=== PATIENT | male | born 1995 | race Caucasian/White ===

== ENCOUNTER 2017-10-21 11:10 | Emergency (ER) | payer OTHER ==
[2017-10-21 11:17] VITALS: BP 131/88
--- NOTE | 2017-10-21 12:04 | EDPHY ---
H & P Time Seen by Provider: 10/21/17 11:36 HPI/ROS: CHIEF COMPLAINT: Left ankle injury HISTORY OF PRESENT ILLNESS: 22-year-old male presents to the emergency department with injury to his left ankle. The patient was running this morning and somehow stepped and twisted his left ankle. The incident happened just prior to arrival. He is having trouble bearing weight. Denies hitting his head or losing consciousness. Denies any other injuries. He has had previous ankle sprains in the past. ROS: Denies numbness or tingling in his toes, pain in his left calf or knee. Past Medical/Surgical History: Asthma, tonsillectomy Social History: [employer] student Smoking Status: Never smoked Physical Exam: On examination the patient has swelling to the lateral aspect of the left ankle overlying lateral malleolus. Tenderness with palpation over the distal fibula and lateral malleolus. Limited dorsiflexion secondary to pain. Full plantar flexion. No obvious ligament instability. Nontender to palpate the medial aspect of his left ankle. Achilles tendon is intact. Calf is nontender. Normal sensation to light touch with normal 2 point discrimination. Strong dorsalis pedis pulse on the dorsal aspect of the left foot. His gait is not tested due to pain. Constitutional: Initial Vital Signs Temperature (C) 36.7 C 10/21/17 11:16 Heart Rate 64 10/21/17 11:16 Respiratory Rate 16 10/21/17 11:16 Blood Pressure 131/88 H 10/21/17 11:16 O2 Sat (%) 95 10/21/17 11:16 O2 Delivery Mode Room Air Allergies/Adverse Reactions: No Known Allergies Allergy (Unverified 10/21/17 11:16) Home Medications: Medication Instructions Recorded NK [No Known Home Meds] 10/21/17 MDM/Departure - MDM Imaging Results: Imaging Impressions Ankle X-Ray 10/21/17 11:18 Impression: 1. No acute osseous abnormality seen left ankle. 2. U-shaped metallic wire-type foreign body projected along the anterolateral aspect of the distal talus near the talonavicular joint. The etiology is indeterminate. Imaging: I viewed and interpreted images myself Procedures: The patient was placed in a Grady boot and examined post application in good placement with normal [employer]. ED Course/Re-evaluation: 22-year-old male presents to the emergency department with left ankle injury. X -rays reveal no fractures. He was placed in a Grady boot and given orthopedic referral. - Depart Disposition: Home, Routine, Self-Care Clinical Impression: Left ankle sprain Qualifiers: Encounter type: initial encounter Involved ligament of ankle: unspecified ligament Qualified Code(s): S93.402A - Sprain of unspecified ligament of left ankle, initial encounter Condition: Good Instructions: Ankle Sprain (ED) Additional Instructions: Grady boot for comfort and support. Weightbear as tolerated. Ibuprofen 600 mg every 8 hr as needed for pain. Ice and elevate to help relieve swelling. Return to the emergency department if you develop increasing pain, numbness or tingling in her toes, or if you feel worse in any way. Referrals: Yoandy Almaraz MD [Medical Doctor] - 5-7 days, call for appt. (Orthopedic surgeon on-call)
== END 2017-10-21 12:22 | disposition home or self-care (01) ==
DX: S93.402A Sprain of unspecified ligament of left ankle, initial encounter (principal); J45.909 Unspecified asthma, uncomplicated; X50.9XXA Other and unspecified overexertion or strenuous movements or postures, initial encounter; Y99.8 Other external cause status; Y93.02 Activity, running

== ENCOUNTER 2017-12-31 17:55 | Emergency (ER) | payer SELFPAY ==
--- NOTE | 2017-12-31 18:41 | EDPHY ---
H & P Time Seen by Provider: 12/31/17 18:13 HPI/ROS: CHIEF COMPLAINT: "I think I have a sinus infection" HISTORY OF PRESENT ILLNESS: 22-year-old immunocompetent male complaining of 7 days of sinus pressure without improvement. He notes that when he bends over he has the increased maxillary sinus pressure. Been experiencing sore throat, rhinorrhea. Denies: Cough, nausea, vomiting, nuchal rigidity, rash, fever, chills. PRIMARY CARE PROVIDER: REVIEW OF SYSTEMS: 10 systems reviewed and negative with the exception of the elements mentioned in the history of present illness PAST MEDICAL & SURGICAL HISTORY: No pertinent medical or surgical history SOCIAL HISTORY: Nonsmoker PHYSICAL EXAM (Prior to examination, patient consented to physical exam, hands were washed and my usual and customary physical exam procedures followed) 1) GENERAL: Well-developed, well-nourished, alert and oriented. Appears to be in no acute distress. 2) HEAD: Normocephalic, atraumatic 3) HEENT: Pupils equal, round, reactive to light bilaterally. Sclera anicteric. Nasopharynx, oropharynx, clear, no lesions. Moist Mucous membranes. Ears bilaterally with normal tympanic membranes. No evidence of otitis media or otitis externa. Tender to percussion maxillary sinuses. 4) NECK: Full range of motion, no meningeal signs. 5) LUNGS: Clear auscultation bilaterally, no wheezes, no rhonchi, no retractions. 6) HEART: Regular rate and rhythm, no murmur, no heave, no gallop. 7) ABDOMEN: No guarding, no rebound, no focal tenderness, negative McBurney's, negative Dalton's, negative Rovsing's, negative peritoneal sign, 8) MUSCULOSKELETAL: Moving all extremities, no focal areas of tenderness, no obvious trauma. No peripheral edema or discoloration. 9) BACK: No CVA tenderness, no midline vertebral tenderness, no fluctuance, no step-off, no obvious trauma, no visual or palpable abnormality. 10) SKIN: No rash, no petechiae. 11) Psychiatric: Patient is oriented X 3, there is no agitation. DIFFERENTIAL DIAGNOSIS: In no particular include but limited to bacterial sinusitis, viral syndrome, so pharyngitis Smoking Status: Never smoked Constitutional: Initial Vital Signs Temperature (C) 37.1 C 12/31/17 18:12 Heart Rate 62 12/31/17 18:12 Respiratory Rate 18 12/31/17 18:12 Blood Pressure 136/84 H 12/31/17 18:12 O2 Sat (%) 97 12/31/17 18:12 O2 Delivery Mode Room Air Allergies/Adverse Reactions: No Known Allergies Allergy (Unverified 12/31/17 18:11) Home Medications: Medication Instructions Recorded Azithromycin [Zithromax] 500 mg PO DAILY #1 tablet 12/31/17 MDM/Departure - [facility] ED Course/Re-evaluation: Given the longevity of the patient's symptoms I think a course of antibiotics is appropriate. We discussed possible bacterial super infection. I do not think that imaging studies indicated at this time. Will prescribe him azithromycin. My usual and customary discharge precautions instructions provided. I saw this patient independently based on established practice protocols. Care of patient under supervision of secondary supervising physician Dr Church with whom I discussed case. - Depart Disposition: Home, Routine, Self-Care Clinical Impression: Sinusitis Qualifiers: Sinusitis location: maxillary Chronicity: acute Recurrence: not specified as recurrent Qualified Code(s): J01.00 - Acute maxillary sinusitis, unspecified Condition: Good Instructions: Sinusitis (ED) Prescriptions: Azithromycin [Zithromax] 500 mg PO DAILY #1 tablet Referrals: Henna Michelle MD [Medical Doctor] - 5-7 days, call for appt.
[2017-12-31 18:54] VITALS: BP 135/70
== END 2017-12-31 18:54 | disposition home or self-care (01) ==
DX: J01.00 Acute maxillary sinusitis, unspecified (principal)